=== PATIENT | female | born 1985 | race Caucasian/White ===

== ENCOUNTER → 2016-11-09 | Outpatient (CLI) | payer OTHER ==
[~2016-11-09] MED LIST: AMOXICILLIN 50500 MG PO; FLEXERIL 1010 MG/TAB PO; IMPLANON68 MG ID; LORTAB 5/500 501 TAB PO; NO HOME MEDICATIONS; NORCO 325 MG-51 TAB PO; PRENATAL PO; PRENTAL 1 PLUS1 TAB PO; TAMIFLU 75MG75 MG PO
== END ==
LOC: COL.LAB 10:00 → ZLAB.FHCC 10:00
DX: Z02.89 Encounter for other administrative examinations (principal)

== ENCOUNTER 2016-12-25 07:34 | Day surgery (SDC) | payer OTHER ==
[~2016-12-25] VITALS: Ht 170.2 cm; Wt 64.1 kg
[2016-12-25 08:12] VITALS: BP 95/70; PULSE 82; TEMP 98.4
[2016-12-25 09:45] VITALS: BP 98/71; PULSE 76; TEMP 97.9
[2016-12-25 10:00] VITALS: BP 104/75; PULSE 73
[2016-12-25 10:15] VITALS: BP 105/66; PULSE 68
== END 2016-12-25 11:05 | disposition home or self-care (01) ==
LOC: SDCO 07:34
DX: Z12.11 Encounter for screening for malignant neoplasm of colon (principal); Z80.0 Family history of malignant neoplasm of digestive organs; K22.2 Esophageal obstruction; K44.9 Diaphragmatic hernia without obstruction or gangrene
CPT/HCPCS: 43239; 43249; G0105; OP; C1726; J2704; J7030

== ENCOUNTER 2017-08-02 20:19 | Emergency (ER) | payer OTHER ==
[~2017-08-02] VITALS: Ht 170.2 cm; Wt 65.9 kg
[2017-08-02 20:28] VITALS: BP 128/83; PULSE 84; TEMP 98
[2017-08-02 21:37] LABS: COLLECTION METHOD CLEAN CATCH
[2017-08-02 21:44] LABS: MUCOUS Present /lpf; PH 5 (5-8); URINE APPEARANCE Hazy; URINE BACTERIA None Seen /hpf; URINE BILIRUBIN Negative (NEGATIVE); URINE BLOOD Negative (NEGATIVE); URINE COLOR Yellow; URINE GLUCOSE Negative (NEGATIVE); URINE KETONE Negative (NEGATIVE); URINE LEUKOCYTE ESTERASE Trace (NEGATIVE); URINE NITRATE Negative (NEGATIVE); URINE PROTEIN(semi-quant) Negative (NEGATIVE); URINE RBC 0-2 /hpf; URINE UROBILINOGEN Negative (NEGATIVE)
[2017-08-02 21:46] LABS: BASO # 0.1 (0.0-0.2); BASO % 1.3 % (0.0-2.0); EOS # 0.4 (0.0-0.7); EOS % 4.9 % (0-4.0); GRAN # 3.8 (1.4-6.5); GRAN % 52.7 % (42.2-75.2); LYMPH # 2.3 (1.2-3.4); LYMPH % 32.3 % (20.0-51.0); MEAN CELL VOLUME 87 fl (80.0-100.0); MEAN CORPUSCULAR HGB CONC 32 g/dl (33.0-37.0); MEAN PLATELET VOLUME 9.5 fl (7.4-10.4); MONO # 0.6 (0.1-0.6); MONO % 8.4 % (1.7-9.3); PLATELET COUNT 305 K/mm3 (130-400); RED BLOOD COUNT 4.18 M/mm3 (4.10-5.30); REDCELL DISTRIBUTION WIDTH-CV 15.3 % (11.5-14.5)
[2017-08-02 21:58] LABS: ALBUMIN 4.8 gm/dL (3.5-5.0); BILIRUBIN,TOTAL 0.3 mg/dL (0.0-1.0); CALCIUM 9.5 mg/dL (8.4-10.2); CREATININE, serum 0.93 mg/dL (0.52-1.25); TOTAL PROTEIN 7.9 gm/dL (6.4-8.2)
[2017-08-02 22:08] LABS: HEMATOCRIT 36.4 % (37.0-47.0); HEMOGLOBIN 11.6 g/dl (12.5-16.0); MEAN CORPUSCULAR HEMOGLOBIN 28 pg (27.0-31.0)
[2017-08-02] MEDS ORDERED: PRILOTC PO (23:25)
== END 2017-08-03 00:06 | disposition home or self-care (01) ==
LOC: COL.ER 20:19
PROVIDERS: Family Medicine
DX: K21.9 Gastro-esophageal reflux disease without esophagitis (principal); R25.1 Tremor, unspecified; R42 Dizziness and giddiness; R00.2 Palpitations; R53.83 Other fatigue

== ENCOUNTER 2019-06-04 18:20 | Emergency (ER) | payer OTHER ==
[~2019-06-04] VITALS: Ht 170.2 cm; Wt 75.0 kg
[~2019-06-04 18:20] MED LIST changes: +PRILOTC PO
[2019-06-04 18:27] VITALS: BP 137/76; PULSE 88; TEMP 98.5
== END 2019-06-04 21:05 | disposition left against medical advice (07) ==
LOC: COL.ER 18:20
DX: R05 Cough (principal)

== ENCOUNTER 2019-11-10 07:04 | Emergency (ER) | payer OTHER ==
[~2019-11-10] VITALS: Ht 170.2 cm; Wt 76.4 kg
[2019-11-10] MEDS ORDERED: PYRIDIUM 100MG100 MG PO ×3 (07:24→08:32)
[2019-11-10] MEDS ORDERED: MACROBID 1100 MG/CAP PO ×2 (07:24)
[2019-11-10] MEDS ORDERED: PROTONIX 40MG T40 MG PO (07:27)
[2019-11-10 07:31] LABS: COLLECTION METHOD CLEAN CATCH
[2019-11-10] MEDS ORDERED: DIFLUCAN150 MG PO ×3 (08:07→08:32)
[2019-11-10 08:14] LABS: PH 5 (5-8); URINE APPEARANCE Cloudy; URINE BILIRUBIN Negative (NEGATIVE); URINE BLOOD 3+ (NEGATIVE); URINE COLOR Amber; URINE GLUCOSE Negative (NEGATIVE); URINE KETONE Negative (NEGATIVE); URINE LEUKOCYTE ESTERASE Negative (NEGATIVE); URINE NITRATE Negative (NEGATIVE); URINE PROTEIN(semi-quant) 2+ (NEGATIVE); URINE UROBILINOGEN Negative (NEGATIVE)
[2019-11-10] MEDS ORDERED: CEPHALEXIN500 M1 PO ×3 (08:23→08:32)
[2019-11-10 08:27] LABS: URINE BACTERIA Moderate /hpf; URINE RBC >50 /hpf
[2019-11-10 08:34] VITALS: BP 121/89; PULSE 86; TEMP 98
== END 2019-11-10 08:40 | disposition home or self-care (01) ==
LOC: COL.ER 07:04
PROVIDERS: Emergency Medicine
DX: N39.0 Urinary tract infection, site not specified (principal)

== ENCOUNTER 2021-11-24 11:03 | Emergency (ER) | payer OTHER ==
[~2021-11-24] VITALS: Ht 170.2 cm; Wt 81.8 kg
[~2021-11-24 11:03] MED LIST changes: +CEPHALEXIN500 M1 PO; +DIFLUCAN150 MG PO; +MACROBID 1100 MG/CAP PO; +PROTONIX 40MG T40 MG PO; +PYRIDIUM 100MG100 MG PO
[2021-11-24 12:54] VITALS: BP 122/99; PULSE 76; TEMP 97.9
== END 2021-11-24 12:54 | disposition home or self-care (01) ==
LOC: COL.ER 11:03
DX: S01.111A Laceration without foreign body of right eyelid and periocular area, initial encounter (principal); Z23 Encounter for immunization; Z28.310 Unvaccinated for COVID-19; W26.8XXA Contact with other sharp object(s), not elsewhere classified, initial encounter; W27.0XXA Contact with workbench tool, initial encounter

== ENCOUNTER → 2021-11-29 | Outpatient (CLI) | payer OTHER ==
[2021-11-29 10:36] VITALS: BP 128/88; PULSE 78; TEMP 97.8
== END ==
LOC: COL.ER 10:11
DX: Z48.02 Encounter for removal of sutures (principal)

== ENCOUNTER 2024-02-15 22:25 | Emergency (ER) | payer OTHER ==
[~2024-02-15] VITALS: Ht 167.6 cm; Wt 81.8 kg
[2024-02-15 22:38] VITALS: TEMP 98.3
[2024-02-15 23:13] LABS: BASO # 0.1 K/mm3 (0.0-0.2); BASO % 0.7 % (0.0-2.0); EOS # 0.1 K/mm3 (0.0-0.7); EOS % 0.7 % (0.0-4.0); GRAN % 68.4 % (42.2-75.2); HEMOGLOBIN 10.3 g/dl (12.5-16.0); LYMPH # 1.8 K/mm3 (1.2-3.4); MEAN CELL VOLUME 78 fl (80.0-100.0); MEAN CORPUSCULAR HEMOGLOBIN 24 pg (27-31); MEAN CORPUSCULAR HGB CONC 31 g/dl (33.0-37.0); MEAN PLATELET VOLUME 9.3 fl (7.4-10.4); MONO # 0.8 K/mm3 (0.1-0.6); MONO % 9.4 % (1.7-9.3); PLATELET COUNT 394 K/mm3 (130-400); REDCELL DISTRIBUTION WIDTH-CV 18.9 % (11.5-14.5)
[2024-02-15 23:18] LABS: HEMATOCRIT 33.7 % (37.0-47.0)
[2024-02-15 23:37] LABS: ALANINE AMINOTRANSFERASE 23 U/L (0-55); ALBUMIN 3.9 g/dL (3.5-5.0); ALKALINE PHOSPHATASE 75 U/L (40-150); ANION GAP 12 mmol/L (7-16); AST,SGOT 19 U/L (5-34); BILIRUBIN,TOTAL 0.3 mg/dL (0.2-1.2); BLOOD UREA NITROGEN 12 mg/dL (7-19); CALCIUM 9.5 mg/dL (8.4-10.2); CHLORIDE 107 mEq/L (98-107); CREATININE, serum 0.87 mg/dL (0.57-1.11); GLUCOSE 103 mg/dL (70-99); POTASSIUM 3.9 mEq/L (3.5-4.5); SODIUM 141 mEq/L (136-145); TOTAL PROTEIN 7.5 g/dl (6.2-8.1)
[2024-02-15 23:45] LABS: TROPONIN-I < 0.010 ng/mL (0.00-0.033)
[2024-02-16 00:21] VITALS: BP 144/99; PULSE 78
== END 2024-02-16 00:21 | disposition home or self-care (01) ==
LOC: COL.ER 22:25
PROVIDERS: Physician Assistant
DX: R00.2 Palpitations (principal); D64.9 Anemia, unspecified